=== PATIENT | female | born 1955 | race Caucasian/White ===

== ENCOUNTER → 2018-12-19 | Outpatient (CLI) | payer BC ==
[~2018-12-19] MED LIST: CALC1CAP8 PO; LATA2.5D3 EACHEYE; MULT-516 PO; TAMO20TA PO
== END | disposition home or self-care (01) ==
LOC: STAR 15:03
PROVIDERS: ATTEND Otolaryngology
DX: D14.0 Benign neoplasm of middle ear, nasal cavity and accessory sinuses (principal); J32.2 Chronic ethmoidal sinusitis; Z79.899 Other long term (current) drug therapy; Z72.89 Other problems related to lifestyle; Z87.891 Personal history of nicotine dependence
CPT/HCPCS: 93005

== ENCOUNTER 2018-12-30 05:37 | Day surgery (SDC) | payer BC ==
[~2018-12-30] VITALS: Ht 172.7 cm; Wt 60.8 kg
[2018-12-30] MEDS ORDERED: LACTATED RINGERS 1,000 ML IV SCH (06:06)
[2018-12-30] MEDS ORDERED: FLUORESCEIN SODIUM 500 MG/5 ML ONE (06:50)
[2018-12-30] MEDS ORDERED: EPINEPHRINE TOPICAL SOLN 1 MG/ML, 30ML ONE (06:50)
[2018-12-30] MEDS ORDERED: BACITRACIN OINT 500U/GM, 15 GM ONE (06:50)
[2018-12-30] MEDS ORDERED: OXYMETAZOLINE NASAL SPRAY 0.05%, 15ML ONE (06:51)
[2018-12-30] MEDS ORDERED: LIDOCAINE 1%-EPI 1:100K, 20ML ONE (06:51)
[2018-12-30] MEDS ORDERED: MIDAZOLAM 1 MG/ML, 2ML ONE (07:26)
[2018-12-30] MEDS ORDERED: FENTANYL PF 100 MCG/2ML ONE (07:26)
[2018-12-30] MEDS ORDERED: SUCCINYLCHOLINE 20 MG/ML, 10ML ONE (07:39)
[2018-12-30] MEDS ORDERED: CEFAZOLIN 1,000 MG ONE (07:39)
[2018-12-30] MEDS ORDERED: GLYCOPYRROLATE 0.2MG/1ML, 5ML ONE (07:39)
[2018-12-30] MEDS ORDERED: DEXAMETHASONE 4 MG/ML, 1ML ONE (07:39)
[2018-12-30] MEDS ORDERED: ONDANSETRON 2MG/ML, 2ML ONE (07:39)
[2018-12-30] MEDS ORDERED: ROCURONIUM 10 MG/ML,10ML ONE (07:39)
[2018-12-30] MEDS ORDERED: PROPOFOL 10 MG/ML, 20ML ONE (07:39)
[2018-12-30] MEDS ORDERED: ONDANSETRON ODT 8 MG PO PRN (08:00)
[2018-12-30] MEDS ORDERED: ONDANSETRON 2MG/ML, 2ML IV PRN (08:00)
[2018-12-30] MEDS ORDERED: ACETAMINOPHEN 325 MG TABLET PO PRN (08:00)
[2018-12-30] MEDS ORDERED: LORazepam 2 MG/ML, 1ML IVPush PRN (08:00)
[2018-12-30] MEDS ORDERED: FENTANYL PF 100 MCG/2ML IV PRN (08:00)
[2018-12-30] MEDS ORDERED: PROMETHAZINE 25 MG/ML, 1ML IV PRN (08:00)
[2018-12-30] MEDS ORDERED: OXYcodone 5 MG/5 ML ORAL.SOL UDC PO PRN (08:00)
[2018-12-30] MEDS ORDERED: HYDROmorphone 2 MG/ML, 1ML IVPush PRN (08:00)
== END 2018-12-30 10:30 | disposition home or self-care (01) ==
LOC: OUT 05:37
PROVIDERS: ATTEND Otolaryngology
DX: D14.0 Benign neoplasm of middle ear, nasal cavity and accessory sinuses (principal); Z98.890 Other specified postprocedural states; Z90.710 Acquired absence of both cervix and uterus; Z90.10 Acquired absence of unspecified breast and nipple; Z72.89 Other problems related to lifestyle; Z85.3 Personal history of malignant neoplasm of breast
CPT/HCPCS: 30117; 88305; 88331; J0330; J0690; J1100; J2250; J2405; J2704; J3010; J3490; J7120

== ENCOUNTER → 2020-03-16 | Outpatient (CLI) | payer BC | END | disposition home or self-care (01) | LOC: CFH 10:34 | PROVIDERS: ATTEND Internal Medicine | DX: M47.812 Spondylosis without myelopathy or radiculopathy, cervical region (principal); M48.02 Spinal stenosis, cervical region; M25.511 Pain in right shoulder | CPT/HCPCS: 72050 ==